=== PATIENT | female | born 1995 | race Caucasian/White ===

== ENCOUNTER 2017-06-30 18:50 | Emergency (ER) | payer OTHER ==
[2017-06-30 18:55] VITALS: BP 132/68
[2017-06-30] MEDS ORDERED: hydrOXYzine PAMOATE 25 MG CAPSULE PO STA (19:04)
[2017-06-30] MEDS ORDERED: predniSONE 20 MG TABLET PO STA (19:04)
--- NOTE | 2017-06-30 19:07 | ED Physician Documentation ---
PD HPI SKIN - Stated complaint Stated Complaint: RASH/ POSS ALLERGIC REACTION - Chief complaint Chief Complaint: Wound - History obtained from History obtained from: Patient - History of Present Illness Timing - onset: Other (She has a history of eczema and over the last week she has had a severely itchy rash all over about specific cause. She also notes swollen submandibular lymph nodes. No fevers, sore throat, chills, myalgias, or fatigue.) Review of Systems Constitutional: denies: Fever, Chills Respiratory: denies: Dyspnea, Cough GI: denies: Abdominal Pain, Nausea, Vomiting : denies: Now [facility] PD PAST MEDICAL HISTORY - Past Medical History Past Medical History: Yes Derm: Eczema - Past Surgical History Past Surgical History: Yes HEENT: Tonsil/Adenoidectomy - Present Medications Home Medications: Ambulatory Orders Medication Instructions Recorded Confirmed hydrOXYzine PAMOATE [Vistaril] 25 mg PO Q6H PRN #15 capsule 06/30/17 predniSONE [Deltasone] 60 mg PO DAILY 5 Days tablet 06/30/17 - Allergies Allergies/Adverse Reactions: Allergies Allergy/AdvReac Type Severity Reaction Status Date / Time Sulfa (Sulfonamide Allergy Unknown Verified 06/30/17 18:54 Antibiotics) - Social History Does the pt smoke?: Yes Smoking Status: Current every day smoker PD ED PE NORMAL - Vitals Vital signs reviewed: Yes - General General: Alert and oriented X 3, No acute distress - HEENT HEENT: Other (Mild submandibular adenopathy, shotty.) - Derm Derm: Other (She has a diffuse rash on the trunk, flexor surfaces of the arms, this is consistent with a bad eczema flare.) - Neuro Neuro: Alert and oriented X 3, Normal speech Results - Vitals Vitals: Vital Signs - 24 hr 06/30/17 18:52 Temperature 36.8 C Heart Rate 80 Respiratory 17 Rate Blood Pressure 132/68 H O2 Saturation 98 Oxygen O2 Source Room air Departure - Departure Disposition: 01 Home, Self Care Clinical Impression: Eczema Qualifiers: Eczema type: flexural Qualified Code(s): L20.82 - Flexural eczema Condition: Good Record reviewed to determine appropriate education?: Yes Instructions: ED Dermatitis Atopic Eczema Follow-Up: [facility] [Provider Group] - Within 1 week Prescriptions: hydrOXYzine PAMOATE [Vistaril] 25 mg PO Q6H PRN #15 capsule PRN Reason: Itching predniSONE [Deltasone] 60 mg PO DAILY 5 Days tablet Comments: Your blood pressure was elevated today on check into the emergency department. This does not mean that you have hypertension, it is a common phenomenon to come to the emergency department and have elevated blood pressure. I recommend that you see your primary care physician within the week to have it rechecked when you are feeling better.
== END 2017-06-30 19:30 | disposition home or self-care (01) ==
LOC: ED 18:50
DX: L20.82 Flexural eczema (principal); R03.0 Elevated blood-pressure reading, without diagnosis of hypertension; F17.200 Nicotine dependence, unspecified, uncomplicated
CPT/HCPCS: 99283; A9270; J7512

== ENCOUNTER 2020-11-03 08:00 | Outpatient (CLI) | payer BC, OTHER ==
[2020-11-03 22:18] LABS: CHLAMYDIA TRACHOMATIS DNA NEGATIVE (NEGATIVE); NEISSERIA GONORRHOEAE DNA NEGATIVE (NEGATIVE); TRICHOMONAS VAGINALIS DNA NEGATIVE (NEGATIVE)
== END 2020-11-03 23:59 | disposition home or self-care (01) ==
LOC: LAB.WC 08:00
PROVIDERS: ATTEND Obstetrics & Gynecology
DX: Z11.3 Encounter for screening for infections with a predominantly sexual mode of transmission (principal)
CPT/HCPCS: 87491; 87591; 87661